=== PATIENT | female | born 1990 | race Caucasian/White ===

== ENCOUNTER 2021-06-04 17:27 | Emergency (ER) | payer OTHER ==
[2021-06-04 18:00] LABS: BILIRUBIN,URINE NEGATIVE (NEGATIVE); GLUCOSE, URINE (UA) NEGATIVE (NEGATIVE); KETONES,URINE (UA) >=80 mg/dL (NEGATIVE); LEUKOCYTE ESTERASE, URINE SMALL (NEGATIVE); NITRITE,URINE NEGATIVE (NEGATIVE); OCCULT BLOOD,URINE NEGATIVE (NEGATIVE); PH,URINE 6.5 PH (5.0-7.5); PROTEIN,URINE TRACE mg/dL (NEGATIVE); UROBILINOGEN,URINE 0.2 (NORMAL) E.U./dL (NORMAL)
[2021-06-04 18:09] LABS: CLARITY,URINE HAZY (CLEAR); HCG UR QUAL NEGATIVE
[2021-06-04] MEDS ORDERED: cefTRIAXone 1 GM in SODIUM CHLORIDE 0.9% MINIBAG 100 ML IV STA (18:09)
[2021-06-04] MEDS ORDERED: LACTATED RINGERS 1,769.01 ML IV STA (18:09)
--- NOTE | 2021-06-04 18:10 | ED Physician Documentation ---
PD HPI FEMALE - Stated complaint Stated Complaint: FEMALE - Chief complaint Chief Complaint: UTI - History obtained from History obtained from: Patient - Additional information Additional information: 31-year-old woman with recurrent UTIs has been sick for 3 days with fever to 101.5, right greater than left back pain and dysuria. She has been taking Macrobid without improvement. We discussed why Macrobid does not really help with pyelonephritis. 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 : Chronic bladder infection HEENT: None Musculoskeletal: None Derm: None - Past Surgical History Past Surgical History: No - Present Medications Home Medications: Ambulatory Orders Medication Instructions Recorded Confirmed Ciprofloxacin HCl [Cipro] 500 mg PO BID #20 tablet 06/04/21 Nitrofurantoin Macrocrystal 100 mg PO Q8HR 06/04/21 06/04/21 [Macrodantin] - Allergies Allergies/Adverse Reactions: Allergies Allergy/AdvReac Type Severity Reaction Status Date / Time No Known Drug Allergies Allergy Verified 06/04/21 17:31 - Social History Does the pt smoke?: No Smoking Status: Never smoker Does the pt drink ETOH?: No Does the pt have substance abuse?: No PD ED PE NORMAL - Vitals Vital signs reviewed: Yes (.Triage heart rate of 145, on my examination it is closer to 120.) - General General: Alert and oriented X 3, No acute distress - HEENT HEENT: PERRL, EOMI - Cardiac Cardiac: Other (Tachycardic but regular without murmur) - Respiratory Respiratory: No respiratory distress, Clear bilaterally - Abdomen Abdomen: Non tender - Back Back: Other (Right CVA tenderness) - Derm Derm: Normal color, Warm and dry - Extremities Extremities: No edema, No calf tenderness / cord - Neuro Neuro: Alert and oriented X 3, Normal speech Results - Vitals Vitals: Vital Signs - 24 hr 06/04/21 06/04/21 06/04/21 17:32 17:36 18:35 Temperature 37.2 C 37.2 C Heart Rate 145 H 145 H 118 H Respiratory 20 20 17 Rate Blood Pressure 120/74 120/74 115/85 H O2 Saturation 100 100 98 06/04/21 19:30 Temperature Heart Rate 101 H Respiratory 16 Rate Blood Pressure 123/78 O2 Saturation 99 Oxygen O2 Source Room air - Labs Labs: Laboratory Tests 06/04/21 06/04/21 06/04/21 17:56 18:17 18:17 WBC 10.6 RBC 4.35 Hgb 13.9 Hct 39.5 MCV 90.8 MCH 32.0 H MCHC 35.2 RDW 11.3 L Plt Count 223 MPV 9.1 Neut # (Auto) 9.5 H Lymph # (Auto) 0.2 L Norton # (Auto) 0.5 Eos # (Auto) 0.3 Baso # (Auto) 0.0 Absolute Nucleated RBC 0.00 Nucleated RBC % 0.0 Sodium 130 L Potassium 3.4 L Chloride 97 L Carbon Dioxide 23 Anion Gap 10.0 BUN 9 Creatinine 0.6 Estimated GFR (MDRD) 115 Glucose 122 H Lactic Acid Calcium 9.2 Total Bilirubin 0.7 AST 15 ALT 14 Alkaline Phosphatase 36 L Total Protein 7.6 Albumin 4.0 Globulin 3.6 Albumin/Globulin Ratio 1.1 Urine Color LIGHT YELLOW Urine Clarity HAZY Urine pH 6.5 Ur Specific [place] 1.015 Urine Protein TRACE Urine Glucose (UA) NEGATIVE Urine Ketones >=80 H Urine Occult Blood NEGATIVE Urine Nitrite NEGATIVE Urine Bilirubin NEGATIVE Urine Urobilinogen 0.2 (NORMAL) Ur Leukocyte Esterase SMALL H Urine RBC 0-5 Urine WBC 11-25 H Ur Squamous Epith Cells FEW Squamous Urine Bacteria Moderate H Ur Microscopic Review INDICATED Urine Culture Comments INDICATED Urine HCG, Qual NEGATIVE 06/04/21 18:17 WBC RBC Hgb Hct MCV MCH MCHC RDW Plt Count MPV Neut # (Auto) Lymph # (Auto) Norton # (Auto) Eos # (Auto) Baso # (Auto) Absolute Nucleated RBC Nucleated RBC % Sodium Potassium Chloride Carbon Dioxide Anion Gap BUN Creatinine Estimated GFR (MDRD) Glucose Lactic Acid 0.6 Calcium Total Bilirubin AST ALT Alkaline Phosphatase Total Protein Albumin Globulin Albumin/Globulin Ratio Urine Color Urine Clarity Urine pH Ur Specific [place] Urine Protein Urine Glucose (UA) Urine Ketones Urine Occult Blood Urine Nitrite Urine Bilirubin Urine Urobilinogen Ur Leukocyte Esterase Urine RBC Urine WBC Ur Squamous Epith Cells Urine Bacteria Ur Microscopic Review Urine Culture Comments Urine HCG, Qual PD MEDICAL DECISION MAKING - ED course ED course: 31-year-old woman with pyelonephritis. Labs were checked and reassuring without evidence of sepsis. Feeling better after IV fluids and got a dose of IV Rocephin here. Departure - Departure Disposition: 01 Home, Self Care Clinical Impression: Pyelonephritis Condition: Good Record reviewed to determine appropriate education?: Yes Instructions: Pyelonephritis Dc Prescriptions: Ciprofloxacin HCl [Cipro] 500 mg PO BID #20 tablet Comments: I sent your prescription electronically to [facility] in [place]. We will culture your urine, the results should be done in 48-72 hours. If an antibiotic change is necessary we will call you. Return if worse in the meantime, especially if you develop increasing flank pain, fevers, or cannot keep down the medication. Discharge Date/Time: 06/04/21 20:39
[2021-06-04 18:25] LABS: BASOPHILS % (AUTO) 0.1 %; EOSINOPHILS # (AUTO) 0.3 10^3/uL (0.0-0.7); EOSINOPHILS % (AUTO) 2.6 %; HCT - HEMATOCRIT 39.5 % (37.0-47.0); HGB - HEMOGLOBIN 13.9 g/dL (12.0-16.0); LYMPHOCYTES # (AUTO) 0.2 10^3/uL (1.5-3.5); LYMPHOCYTES % (AUTO) 2.3 %; MEAN CORPUSCULAR HGB CONC 35.2 g/dL (32.0-36.0); MEAN CORPUSCULAR VOLUME 90.8 fL (81.0-99.0); MEAN PLATELET VOLUME 9.1 fL (7.9-10.8); MONOCYTES # (AUTO) 0.5 10^3/uL (0.0-1.0); NEUTROPHILS # (AUTO) 9.5 10^3/uL (1.5-6.6); NEUTROPHILS % (AUTO) 89.7 %; PLT - PLATELET COUNT 223 10^3/uL (130-450); RED BLOOD COUNT 4.35 10^6/uL (4.20-5.40); RED CELL DISTRIBUTION WIDTH 11.3 % (12.0-15.0); WHITE BLOOD COUNT 10.6 x10^3/uL (4.8-10.8)
[2021-06-04 18:28] LABS: BACTERIA,URINE Moderate /HPF (None Seen); RBC,URINE 0-5 /HPF (0-5); SQUAMOUS EPITHELIAL CELL,UR FEW Squamous (<= Few)
[2021-06-04 18:37] LABS: ALBUMIN/GLOBULIN RATIO 1.1 (1.0-2.2); BILIRUBIN,TOTAL 0.7 mg/dL (0.2-1.0); CALCIUM 9.2 mg/dL (8.5-10.3); CREATININE 0.6 mg/dL (0.4-1.0); POTASSIUM 3.4 mmol/L (3.5-5.0); TOTAL PROTEIN 7.6 g/dL (6.7-8.2)
[2021-06-04 19:40] VITALS: BP 123/78
[2021-06-04] MEDS ORDERED: KETOROLAC 15 MG/ML VIAL IVP STA (19:44)
== END 2021-06-04 20:39 | disposition home or self-care (01) ==
LOC: ED 17:27
DX: N12 Tubulo-interstitial nephritis, not specified as acute or chronic (principal)
CPT/HCPCS: 36415; 80053; 81001; 81025; 83605; 85025; 87040; 87086; 96365; 96375; 99283; J7120; 81003

== ENCOUNTER 2023-09-30 20:35 | Emergency (ER) | payer OTHER ==
[2023-09-30 20:54] VITALS: O2SAT 98
--- NOTE | 2023-09-30 20:54 | ED Physician Documentation ---
History of Present Illness - Stated complaint Stated Complaint: LOWER BACK PX/ - Chief complaint Chief Complaint: UTI - History obtained from History obtained from: Patient - Additonal information Additional information: She has a history of kidney infection and developed symptoms of that over the last day or so with right flank pain, burning dysuria, hematuria. She denies fevers. Pain is severe. Took 1 Keflex and 1 Pyridium prior to arrival. The Keflex was leftover from another issue from several years ago. 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 : Chronic bladder infection HEENT: None Musculoskeletal: None Derm: None - Past Surgical History Past Surgical History: No /SIEBEL CONSULTANT: Dilation and currettage - Present Medications Home Medications: Ambulatory Orders Medication Instructions Recorded Confirmed Ciprofloxacin HCl [Cipro] 500 mg PO BID #20 tablet 06/04/21 Nitrofurantoin Macrocrystal 100 mg PO Q8HR 06/04/21 06/04/21 [Macrodantin] Ciprofloxacin HCl [Cipro] 500 mg PO BID #20 tablet 09/30/23 HYDROcod/ACETAM 5/325 [Nuevo 5/325] 1 - 2 tab PO Q6H PRN #15 tablet 09/30/23 Metoclopramide [Reglan] 10 mg PO Q6H PRN #20 tablet 09/30/23 - Allergies Allergies/Adverse Reactions: Allergies Allergy/AdvReac Type Severity Reaction Status Date / Time No Known Drug Allergies Allergy Verified 09/30/23 20:49 - Social History Does the pt smoke?: No Smoking Status: Never smoker Does the pt drink ETOH?: No Does the pt have substance abuse?: No - Immunizations Immunizations are current?: Yes - POLST Patient has POLST: No PD ED PE NORMAL - Vitals Vital signs reviewed: Yes - General General: Alert and oriented X 3, Other (She appears uncomfortable) - Abdomen Abdomen: Soft, Non tender - Back Back: Other (Tender over the left flank) - Neuro Neuro: Alert and oriented X 3 Results - Vitals Vitals: Vital Signs - 24 hr 09/30/23 09/30/23 20:43 20:53 Temperature 36.9 C Heart Rate 113 H 100 Respiratory 18 Rate Blood Pressure 130/85 H O2 Saturation 98 Oxygen O2 Source Room air - Labs Labs: Laboratory Tests 09/30/23 21:00 Urine Color RED/BLOODY Urine Clarity SL. CLOUDY Urine pH 6.5 Ur Specific [place] ... Urine Protein ... Urine Glucose (UA) ... Urine Ketones ... Urine Occult Blood ... Urine Nitrite ... Urine Bilirubin ... Urine Urobilinogen ... Ur Leukocyte Esterase MODERATE H Urine RBC TNTC H Urine WBC 11-25 H Urine WBC Clumps PRESENT Ur Squamous Epith Cells FEW Squamous Urine Bacteria Few Ur Microscopic Review INDICATED Urine Culture Comments INDICATED Urine HCG, Qual NEGATIVE PD Medical Decision Making - ED course ED course: 33-year-old woman with recurrent kidney infections presents with what sounds like pyelonephritis. Less likely would be kidney stone. She is having a lot of pain and was much better after intramuscular Toradol and Dilaudid. Urinalysis was somewhat obsfuscated by Pyridium use but demonstrated leukocyte Estrace, red cells and white cells as well as white cell clumps. She took a dose of Keflex prior to arrival so that may limit the diagnostic utility of the culture. We discussed the potential for concomitant renal colic but that is felt to be less likely. Departure - Departure Disposition: Home, Self Care Clinical Impression: Pyelonephritis Condition: Good Record reviewed to determine appropriate education?: Yes Instructions: Pyelonephritis Dc Prescriptions: Ciprofloxacin HCl [Cipro] 500 mg PO BID #20 tablet HYDROcod/ACETAM 5/325 [[place] 5/325] 1 - 2 tab PO Q6H PRN #15 tablet PRN Reason: Pain Metoclopramide [Reglan] 10 mg PO Q6H PRN #20 tablet PRN Reason: nausea or headache Comments: As discussed, we will perform a urine culture but results may be limited by antibiotic use prior to arrival sterilizing the urine. I sent your prescription electronically to [facility] in [place]. If you are not improving over the next couple of days return for reevaluation, sooner if you worsen or develop high fevers or shaking chills. I am prescribing a short course of narcotic pain medication for you. These are potentially dangerous and addictive medications that should be used carefully. These medications may constipate you. Take an [id number] stool softener (docusate) twice daily with plenty of water while taking these medications. If you go 24 hours without a bowel movement, take [id number] miralax, per package instructions. Do not drink or drive while taking these medications. If you received narcotic or sedating medications while in the emergency department, do not drive for 24 hours. Store this medication in a safe, secure place and out of reach of children. It is a violation of federal law to give or sell this medication to another person or to use in a manner other than prescribed. The ED will not refill narcotic prescriptions, including prescriptions lost or stolen. To dispose of unwanted medications: 1. [facility] provides a drop box for medication in pill form only (no liquids) 8:00 am to 4:30 p.m. Monday-Monday in the lobby of the [facility], [address] [place] [address]. Empty pills into ziplock bag before disposal. Call [phone] for information. 2.[employer] is a free service available to all [facility] residents. Go to [email or web address] Note that many narcotic pain relievers also contain Tylenol/acetaminophen. Please ensure that your total dose of acetaminophen from all sources does not exceed 3 g (3000 mg) per day.
[2023-09-30] MEDS: HYDROmorphone 1 MG/ML CARPUJECT IM STA (20:57)
[2023-09-30] MEDS: KETOROLAC 30 MG/ML VIAL IM STA (20:57)
[2023-09-30 21:09] LABS: LEUKOCYTE ESTERASE, URINE MODERATE (NEGATIVE); PH,URINE 6.5 PH (5.0-7.5)
[2023-09-30 21:15] LABS: CLARITY,URINE SL. CLOUDY (CLEAR)
[2023-09-30 21:18] LABS: HCG UR QUAL NEGATIVE
[2023-09-30 21:32] LABS: BACTERIA,URINE Few /HPF (None Seen); RBC,URINE TNTC /HPF (0-5); SQUAMOUS EPITHELIAL CELL,UR FEW Squamous (<= Few); WBC CLUMPS,URINE PRESENT
[2023-09-30] MEDS: ONDANSETRON ODT 4 MG TABLET TL STA (21:33)
[2023-09-30] MEDS: HYDROcod/ACET 5/325 Prepack 4 PO STA (21:43)
[2023-09-30] MEDS: CIPROFLOXACIN 250 MG TABLET PO STA (21:43)
[2023-09-30 21:54] VITALS: BP 126/80
== END 2023-09-30 21:53 | disposition home or self-care (01) ==
LOC: ED 20:35
DX: N12 Tubulo-interstitial nephritis, not specified as acute or chronic (principal)
CPT/HCPCS: 81001; 81025; 87086; 96372; 99283; A9270; J1170; Q0162; 81003